=== PATIENT | female | born 1950 | race Caucasian/White ===

== ENCOUNTER 2018-08-01 23:31 | Emergency (ER) | payer OTHER ==
[~2018-08-01] VITALS: Ht 160 cm; Wt 48.1 kg
[~2018-08-01 23:31] MED LIST: PRILOSEC40 MG PO
[2018-08-01] MEDS ORDERED: SYNTHROID50 MCG PO (23:43)
[2018-08-01] MEDS ORDERED: LIPITOR20 MG PO (23:43)
[2018-08-02] MEDS ORDERED: ZYNCOF 20-400120 ML PO (05:44)
[2018-08-02] MEDS ORDERED: ALBUTEROL2.5 MG/3 M IH (05:44)
[2018-08-02] MEDS ORDERED: LEVAQUIN500 MG PO (05:46)
== END 2018-08-02 05:53 | disposition home or self-care (01) ==
LOC: ER 23:31
DX: J40 Bronchitis, not specified as acute or chronic (principal)